=== PATIENT | male | born 1945 | race Caucasian/White ===

== ENCOUNTER 2021-09-02 15:51 | Inpatient (IN) | payer OTHER, SELFPAY ==
[~2021-09-02] VITALS: Ht 152.4 cm; Wt 81.6 kg
[2021-09-02 21:16] VITALS: BP 128/78
[2021-09-02] MEDS ORDERED: ACETAMINOPHEN 325 MG TAB PO PRN (23:55)
[2021-09-02] MEDS ORDERED: hydrALAZINE 20 MG/ML VIAL IVP PRN (23:55)
[2021-09-02] MEDS ORDERED: ONDANSETRON 4 MG/2 ML VIAL IVP PRN (23:55)
[2021-09-02] MEDS ORDERED: ALBUTEROL HFA MDI 90 MCG/ACTUATION 8 GM INH PRN (23:55)
[2021-09-03] VITALS: BP 138/78
[2021-09-03 03:50] VITALS: BP 136/72
[2021-09-03] MEDS: ASCORBIC ACID 500 MG TAB PO SCH ×5 (04:53→23:43)
[2021-09-03 07:07] LABS: HEMATOCRIT 39.1 % (36-52); HEMOGLOBIN 13.4 g/dL (12.0-18.0); MEAN CORPUSCULAR HEMOGLOBIN 29 pg (27-31); MEAN CORPUSCULAR HGB CONC 34 g/dL (33-37); MEAN CORPUSCULAR VOLUME 83.7 fL (80-94); PLATELET COUNT (AUTO) 106 K/uL (140-450); RED BLOOD CELL COUNT(AUTO) 4.67 MIL/uL (4.20-6.10); RED CELL DISTRIBUTION WIDTH 13.8 % (11.6-13.7); WHITE BLOOD COUNT (AUTO) 6.2 K/uL (4.8-10.8)
--- NOTE | 2021-09-03 07:20 | NUR ---
RECEIVED PATIENT REPORT FROM MANAGER HEART FAILURE NURSE FOR CONTINUITY OF CARE. PT IS AOX4, NO RESPIRATORY DISTRESS. SKIN IS INTACT. NO IV AT THE MOMENT. DENIES PAIN AT THE MOMENT. PLAN OF CARE DISCUSSED. SAFETY PRECAUTIONS IN PLACE CALL LIGHT WITHIN REACH. NC AT 5L .
[2021-09-03 07:48] LABS: ANION GAP 19.9 (8-16); CARBON DIOXIDE 18.7 mmol/L (21-32); CHLORIDE 107 mmol/L (98-107); CREATININE 1.4 mg/dL (0.6-1.3); GLUCOSE 208 mg/dL (74-106); POTASSIUM 4.6 mmol/L (3.5-5.1); SODIUM SERUM 141 mmol/L (136-145); UREA NITROGEN, BLOOD 41 mg/dL (7-18)
[2021-09-03 08:00] VITALS: BP 140/67
[2021-09-03 09:50] LABS: LYMPHOCYTES % (MANUAL) 14 % (20-46)
[2021-09-03 09:51] LABS: BASOPHILS % (MANUAL) 0 % (0-2); EOSINOPHILS % (MANUAL) 0 % (0-4); MONOCYTES % (MANUAL) 4 % (5-12)
[2021-09-03 10:12] LABS: ALBUMIN 2.5 g/dL (3.4-5.0); BILIRUBIN,DIRECT 0.3 mg/dL (0.0-0.3); TOTAL BILIRUBIN 0.6 mg/dL (0.0-1.0)
[2021-09-03] MEDS: DEXAMETHASONE 4 MG/ML VIAL IVP SCH (11:54)
[2021-09-03] MEDS: cefTRIAXone 2,000 MG in DEXTROSE 5% 100 ML IV SCH (11:55)
[2021-09-03 12:00] VITALS: BP 132/69
[2021-09-03] MEDS ORDERED: INSULIN LISPRO SLIDING SCALE 100 UNITS/ML VIAL SUBQ PRN (12:00)
[2021-09-03] MEDS ORDERED: remdesivir CLINICAL MONITORING 1 EA MISC MC PRN (12:40)
[2021-09-03] MEDS ORDERED: ENOXAPARIN 80 MG/0.8 ML SYR SUBQ SCH (12:45)
--- NOTE | 2021-09-03 13:49 | NUR ---
PATIENT HAS BEEN SCREENED AND CATEGORIZED MODERATE NUTRITION RISK. PATIENT WILL BE SEEN WITHIN 3-5 DAYS OF ADMISSION. 09/05/2021-09/07/[address]
[2021-09-03] MEDS: AZITHROMYCIN 500 MG in DEXTROSE 5% 250 ML IV SCH (13:58)
[2021-09-03] MEDS ORDERED: REMDESIVIR. 200 MG in NACL 0.9% 100 ML IV SCH (14:00)
[2021-09-03] MEDS: remdesivir COMMUNICATION ORDER 1 EA MISC MC SCH (14:00)
[2021-09-03 16:00] VITALS: BP 132/69
[2021-09-03] MEDS ORDERED: REMDESIVIR. 100 MG in NACL 0.9% 100 ML IV SCH ×4 (16:00)
--- NOTE | 2021-09-03 19:30 | NUR ---
ENDORSED PATIENT TO SUPERINTENDENT CEMETERY NURSE. PT STABLE. NO S/S OF DISTRESS. ON NC 3L . BREATHING IS UNLABORED AND SYMMETRICAL. CALL LIGHT IS WITHIN REACH. ALL SAFETY MEASURES IN PLACE.
[2021-09-03 20:00] VITALS: BP 134/70
[2021-09-03] MEDS: ZINC SULF 220 MG CAP PO SCH (21:58)
[2021-09-04] VITALS: BP 139/73
--- NOTE | 2021-09-04 01:08 | NUR ---
Assumed care. A/O. Very hard of hearing. He states it himself. He is also c/o not being able to see well. He has been advised to bring these complaints to the attention of the attending physician. He will be doing this. A thorough bed bath has been given. In the process he indicated to have had some body aches, and pains. Tylenol has been administered. A new IV 20gauge has been inserted in the left forearm to mitigate the frequent 2/2 to the bending of the left antecubital (site of the original IV line.)Fresh drinking water has been offered. He drank 480 ml during my presence. Will continue to monitor.
[2021-09-04 04:00] VITALS: BP 140/74
[2021-09-04] MEDS: ASCORBIC ACID 500 MG TAB PO SCH ×3 (05:53→18:14)
[2021-09-04 06:23] LABS: BASOPHILS % (AUTO) 0.2 % (0.0-2.0); HEMATOCRIT 37.4 % (36-52); HEMOGLOBIN 12.6 g/dL (12.0-18.0); LYMPHOCYTES # (AUTO) 0.8 K/uL (2.0-11.5); MEAN CORPUSCULAR HEMOGLOBIN 28 pg (27-31); MEAN CORPUSCULAR HGB CONC 34 g/dL (33-37); MEAN CORPUSCULAR VOLUME 83.7 fL (80-94); MONOCYTES # (AUTO) 0.9 K/uL (0.8-1.0); MONOCYTES % (AUTO) 8.2 % (1.7-9.3); NEUTROPHILS # (AUTO) 9.6 K/uL (1.8-7.7); PLATELET COUNT (AUTO) 130 K/uL (140-450); RED BLOOD CELL COUNT(AUTO) 4.47 MIL/uL (4.20-6.10); RED CELL DISTRIBUTION WIDTH 13.9 % (11.6-13.7); WHITE BLOOD COUNT (AUTO) 11.3 K/uL (4.8-10.8)
[2021-09-04 06:49] LABS: ANION GAP 15.9 (8-16); CARBON DIOXIDE 20.6 mmol/L (21-32); CHLORIDE 105 mmol/L (98-107); CREATININE 1.3 mg/dL (0.6-1.3); GLUCOSE 287 mg/dL (74-106); POTASSIUM 4.5 mmol/L (3.5-5.1); SODIUM SERUM 137 mmol/L (136-145); UREA NITROGEN, BLOOD 45 mg/dL (7-18)
[2021-09-04 07:15] LABS: LYMPHOCYTES % (AUTO) 6.8 % (20.5-51.1); NEUTROPHILS % (AUTO) 84.8 % (42.2-75.2)
--- NOTE | 2021-09-04 07:30 | NUR ---
BEDSIDE REPORT RECEIVED FROM FINISHING INSPECTOR RN . PT IN BED RESTING EYES CLOSED BREATHING IS SYMMETRICAL . PATIEN ON 3 L NC 91% , ALL SAFETY MEASURES IN PLACE.
[2021-09-04 08:00] VITALS: BP 127/72
--- NOTE | 2021-09-04 08:10 | NUR ---
PT RESTING IN BED EATING BREAKFAST , PT CONSUMED 25% at this point . ALL SAFETY MEASURES IN PLACE.
[2021-09-04] MEDS: remdesivir COMMUNICATION ORDER 1 EA MISC MC SCH (09:00)
[2021-09-04] MEDS: DEXAMETHASONE 4 MG/ML VIAL IVP SCH (09:07)
--- NOTE | 2021-09-04 09:15 | NUR ---
MEDICATIONS GIVEN PER MD ORDER. PT EDUCATED VERBALIZED UNDERSTANDING ALL SAFETY MEASURES ARE IN PLACE.
[2021-09-04 09:47] LABS: BILIRUBIN,DIRECT 0.2 mg/dL (0.0-0.3); TOTAL BILIRUBIN 0.5 mg/dL (0.0-1.0)
[2021-09-04 09:50] LABS: ALBUMIN 2.4 g/dL (3.4-5.0)
[2021-09-04] MEDS: cefTRIAXone 2,000 MG in DEXTROSE 5% 100 ML IV SCH (10:59)
--- NOTE | 2021-09-04 11:52 | NUR ---
PT COMPLAINS THAT HE CANNOT HEAR AND NEEDS HEARING AIDS, AWARE
--- NOTE | 2021-09-04 12:27 | NUR ---
MEDICATIONS GIVEN PER MD ORDER. PT EDUCATED VERBALIZED UNDERSTANDING ALL SAFETY MEASURES ARE IN PLACE.
--- NOTE | 2021-09-04 12:27 | NUR ---
MEDICATIONS GIVEN PER MD ORDER. PT EDUCATED VERBALIZED UNDERSTANDING ALL SAFETY MEASURES ARE IN PLACE.
[2021-09-04] MEDS ORDERED: REMDESIVIR. 100 MG in NACL 0.9% 100 ML IV SCH (14:00)
--- NOTE | 2021-09-04 14:25 | NUR ---
PT ASSISTED WITH BED BATH
[2021-09-04] MEDS: AZITHROMYCIN 500 MG in DEXTROSE 5% 250 ML IV SCH (14:36)
[2021-09-04 16:00] VITALS: BP 134/77
[2021-09-04] MEDS: REMDESIVIR. 100 MG in NACL 0.9% 100 ML IV SCH (16:00)
--- NOTE | 2021-09-04 16:00 | NUR ---
MEDICATIONS GIVEN PER MD ORDER. PT EDUCATED VERBALIZED UNDERSTANDING ALL SAFETY MEASURES ARE IN PLACE.
--- NOTE | 2021-09-04 17:25 | NUR ---
GRANDDAUGHTER CALLED, PT RESTING AT THIS TIME . PT WILL BE MADE AWARE THAT FAMILY IS TRYING TO REACH HIM WHEN AWAKE
--- NOTE | 2021-09-04 18:15 | NUR ---
PT RESTING IN BED , MEAL TRAY WAS SET UP . PT PHONE WAS CONNECTED TO ASSISTANT DIRECTOR OF FINANCIAL AID . PT REMINDED TO CALL FAMILY
--- NOTE | 2021-09-04 18:25 | NUR ---
MEDICATIONS GIVEN PER MD ORDER. PT EDUCATED VERBALIZED UNDERSTANDING ALL SAFETY MEASURES ARE IN PLACE.
--- NOTE | 2021-09-04 19:22 | NUR ---
BED SIDE REPORT GIVEN TO CLOTH WIRE WEAVER RN , PT INSTABLE CONDITION.
[2021-09-04 20:00] VITALS: BP 132/79
[2021-09-04] MEDS: ZINC SULF 220 MG CAP PO SCH (22:05)
[2021-09-05] VITALS: BP 140/78
[2021-09-05] MEDS: ASCORBIC ACID 500 MG TAB PO SCH ×4 (01:48→16:55)
[2021-09-05 04:00] VITALS: BP 142/71
[2021-09-05 07:02] LABS: ANION GAP 7.2 (8-16); CHLORIDE 105 mmol/L (98-107); CREATININE 1.1 mg/dL (0.6-1.3); GLUCOSE 288 mg/dL (74-106); POTASSIUM 4.2 mmol/L (3.5-5.1); SODIUM SERUM 130 mmol/L (136-145); UREA NITROGEN, BLOOD 40 mg/dL (7-18)
[2021-09-05 07:53] LABS: ALBUMIN 2.4 g/dL (3.4-5.0); BILIRUBIN,DIRECT 0.3 mg/dL (0.0-0.3); TOTAL BILIRUBIN 0.6 mg/dL (0.0-1.0)
--- NOTE | 2021-09-05 07:53 | NUR ---
RECEIVED PATIENT REPORT FROM SERVICE ORDER EXPEDITER NURSE FOR CONTINUITY OF CARE. PT IS AOX4, NO RESPIRATORY DISTRESS. SKIN IS INTACT. PATIENT HAS AN IV IN LEFT FOREAM . DENIES PAIN AT THE MOMENT. PLAN OF CARE DISCUSSED. SAFETY PRECAUTIONS IN PLACE CALL LIGHT WITHIN REACH. NC AT 5L SAT 93%
[2021-09-05 08:00] VITALS: BP_SYST 125; BP_SYST 150; BP_DIAS 68; BP_DIAS 70
[2021-09-05] MEDS: DEXAMETHASONE 4 MG/ML VIAL IVP SCH (08:45)
[2021-09-05 09:25] LABS: BASOPHILS % (AUTO) 0.2 % (0.0-2.0); HEMATOCRIT 37.1 % (36-52); HEMOGLOBIN 12.6 g/dL (12.0-18.0); LYMPHOCYTES # (AUTO) 0.8 K/uL (2.0-11.5); LYMPHOCYTES % (AUTO) 6.5 % (20.5-51.1); MEAN CORPUSCULAR HEMOGLOBIN 28 pg (27-31); MEAN CORPUSCULAR HGB CONC 34 g/dL (33-37); MEAN CORPUSCULAR VOLUME 83.2 fL (80-94); MONOCYTES # (AUTO) 1.1 K/uL (0.8-1.0); NEUTROPHILS # (AUTO) 10.4 K/uL (1.8-7.7); NEUTROPHILS % (AUTO) 84.3 % (42.2-75.2); PLATELET COUNT (AUTO) 144 K/uL (140-450); RED BLOOD CELL COUNT(AUTO) 4.46 MIL/uL (4.20-6.10); RED CELL DISTRIBUTION WIDTH 13.8 % (11.6-13.7); WHITE BLOOD COUNT (AUTO) 12.3 K/uL (4.8-10.8)
--- NOTE | 2021-09-05 09:45 | NUR ---
PATIENT LAYING ON BED NO COMPLAINS AT THIS TIME, NO SOD NOTED, BREATHING EVEN UNLABORED, MORNING MEDICATION GOT ADMINISTRATED TOLERATED WELL, ALL SAFETY MEASURES ON PLACE CALLS LIGHT WITHIN REACH
[2021-09-05] MEDS: cefTRIAXone 2,000 MG in DEXTROSE 5% 100 ML IV SCH (11:19)
[2021-09-05] MEDS: ENOXAPARIN 80 MG/0.8 ML SYR SUBQ SCH ×2 (11:23→21:27)
[2021-09-05 12:00] VITALS: BP 141/80
--- NOTE | 2021-09-05 12:47 | NUR ---
PATIENT IN BED GOT CLEANED AND CHANGED, NO SOD NOTED, ALL SAFETY MEASURES ON PLACE CALLS LIGHT WITHIN REACH
[2021-09-05] MEDS: AZITHROMYCIN 500 MG in DEXTROSE 5% 250 ML IV SCH (14:05)
--- NOTE | 2021-09-05 14:15 | NUR ---
PATIENT IN BED NO COMPLAINS NO SOD NOTED, FAMILY CALLED TO ASK ABOUT PATIENT ALL QUESTION WERE ANSWERED, PATIENT SA IN ROOM AIR 85, PUT NASAL CANULA BACK SAT LEVEL 96%, ALL SAFETY MEASURES ON PLACE CALLS LIGHT WITHIN REACH
--- NOTE | 2021-09-05 15:53 | NUR ---
PATIENT IN BED NO COMPLAINS, NO SOD NOTED, ALL SAFETY MEASURES ON PLACE CALLS LIGHT WITHIN REACH
--- NOTE | 2021-09-05 15:58 | NUR ---
DC PLANNIN YRS OLD MALE PATIENT WAS ADMITTED FROM HOME WITH A DX OF SOB AND COVID POSITIVE. PATIENT HAS A HX OF DM AND HTN. CXR SHOWED DIFFUSE PATCHY INFILTRATES CONSISTENT WITH COVID PNEUMONIA. ON 4L/NC SATING 93%. ADMINISTERED IVF, IV ABX AZITHROMYCIN AND REMDESIVIR DAY #3. PT EVAL DONE AND RECOMMENDED SNF PLACEMENT FOR PHYSICAL THERAPY. SPOKE WITH PATIENT AND AGREED TO GO TO SNF STATED HE HAS NO ONE TO HELP HIM. FAXED TO [facility] AND SNF THAT CAN TAKE COVID PATIENT [facility] AND JOSIE STEINER . CM TO FOLLOW. Addendum: 09/06/21 at 1221 by Kamala Fairchild RN DC PLANNING PATIENT ACCEPTED AT [facility] GOING TO [address] .RECEIVED AUTH FROM [facility] [id number] AND [facility] [id number]. ARRANGED TRANSPORT WITH [facility] [phone] GENERAL ACCOUNTING CLERK TIME 1700. CALLED PATIENT'S AMANDA [phone] LEFT A MESSAGE. NOTIFIED PAM MAR. GONZALO TO FOLLOW
[2021-09-05 16:00] VITALS: BP 130/84
[2021-09-05] MEDS: REMDESIVIR. 100 MG in NACL 0.9% 100 ML IV SCH (16:56)
[2021-09-05] MEDS ORDERED: LOVENOX 1MG/KG Q12H SUBQ SCH (17:00)
--- NOTE | 2021-09-05 18:21 | NUR ---
PATIENT IN BED NO COMPLAINS, NO SOD NOTED, ALL SAFETY MEASURES ON PLACE CALLS LIGHT WITHIN REACH
--- NOTE | 2021-09-05 19:49 | NUR ---
FULL REPORT GIVEN TO JUMPBASTING LINING BASTER NURSE
--- NOTE | 2021-09-05 19:50 | NUR ---
RECEIVED REPORT FROM AM NURSE. PATIENT IS RESTING WITH O2 NC AT 5L TOLERATING WELL. NO SOB NOTED. RESPIRATION EVEN UNLABORED. ALL SAFETY MEASURES ARE IN PLACE. NO COMPLAINTS OF PAIN. CALL LIGHT WITHIN REACH. WILL CONTINUE TO MONITOR.
[2021-09-05] MEDS: ZINC SULF 220 MG CAP PO SCH (21:25)
--- NOTE | 2021-09-05 21:27 | NUR ---
ALL SCHEDULED MEDS AT 2100 ARE GIVEN.
[2021-09-06] VITALS: BP 144/71
[2021-09-06] MEDS: ASCORBIC ACID 500 MG TAB PO SCH ×4 (00:13→18:26)
--- NOTE | 2021-09-06 02:00 | NUR ---
PATIENT IS ASLEEP. NO S/S OF RESPIRATORY DISTRESS. CALL LIGHT WITHIN REACH.
--- NOTE | 2021-09-06 07:30 | NUR ---
ENDORSED TO AM NURSE FOR CONTINUITY OF CARE. PATIENT IS STABLE.
--- NOTE | 2021-09-06 07:30 | NUR ---
RECEIVED REPORT FROM DOUGHMAKER NURSE FOR CONTINUITY OF CARE. PATIENT IS IN BED SLEEPING AT THIS TIME. RESPIRATIONS ARE EVEN AND UNLABORED. NO SIGNS OF DISTRESS NOTED. PATIENT IS ALERT AND ORIENTED X3. [place] SPEAKING ONLY. PATIENT IS HARD OF HEARING. PATIENT IS ON 5L02, HOWEVER DOES TAKE IT OFF AT TIMES, AND IS SAT AT 98%. PATIENT IS ON 2G SODIUM DIET, ABD IS SOFT, NON-TENDER, NON-DISTENDED WITH BOWEL SOUNDS PRESENT. PATIENT HAS IV TO LFA 20G. IV IS INTACT AND PATENT. PATIENT SKIN IS WARM, DRY, AND INTACT. PER DOUGHMAKER, PATIENT REFUSED LAST BLOOD GLUCOSE CHECK. WILL ATTEMPT BLOOD GLUCOSE CHECK. ALL SAFETY MEASURES IN PLACE. CALL LIGHT WITHIN REACH. WILL CONTINUE TO MONITOR.
--- NOTE | 2021-09-06 07:35 | NUR ---
patient refused blood glucose check.
[2021-09-06 08:00] VITALS: BP 146/70
[2021-09-06] MEDS: ENOXAPARIN 80 MG/0.8 ML SYR SUBQ SCH (09:34)
--- NOTE | 2021-09-06 09:34 | NUR ---
ALL SCHEDULED MEDICATIONS ADMINISTERED. EDUCATED PATIENT ON ALL MEDICATIONS ADMINISTERED. PATIENT STATED AN UNDERSTANDING OF INFORMATION PROVIDED. ATTEMPTED BLOOD GLUCOSE CHECK, PATIENT REFUSED. STATED HE IS TIRED OF GETTING POKED. EDUCATED PATIENT ON IMPORTANCE OF BLOOD GLUCOSE MONITORING. PATIENT STILL REFUSED. WILL ATTEMPTED AGAIN.
[2021-09-06] MEDS: DEXAMETHASONE 4 MG/ML VIAL IVP SCH (09:37)
[2021-09-06] MEDS: cefTRIAXone 2,000 MG in DEXTROSE 5% 100 ML IV SCH (10:26)
--- NOTE | 2021-09-06 10:26 | NUR ---
IV MEDICATION ROCEPHIN ADMINISTERED BY ZAID.
--- NOTE | 2021-09-06 10:27 | NUR ---
PT TITRATED FROM 6 TO 5L NC, SPO2 92%.
[2021-09-06] MEDS ORDERED: LOV80I SUBQ (11:20)
[2021-09-06] MEDS ORDERED: ROC2I IVP (11:20)
[2021-09-06] MEDS ORDERED: ZINC220C29 PO (11:20)
[2021-09-06] MEDS ORDERED: ACET-1182 PO (11:20)
[2021-09-06] MEDS ORDERED: AZIT500P1 IV (11:20)
[2021-09-06] MEDS ORDERED: VITC500 PO (11:20)
[2021-09-06] MEDS ORDERED: DEXA4VIA11 IVP (11:20)
--- NOTE | 2021-09-06 11:54 | NUR ---
09/06/21 RD INITIAL ASSESSMENT COMPLETED PLEASE REFER TO NUTRITION ASSESSMENT UNDER CARE ACTIVITY FOR ESTIMATED NUTRITIONAL NEEDS. 1. RECOMMEND MECHANICAL SOFT, CCHO, 2GM NA DUE TO HYPERGLYCEMIA AND MISSING TEETH 2. RECOMMEND GLUCERNA BID -THIS WILL PROVIDE [address] KCALS AND [address] TO FOLLOW-UP 3-5 DAYS, MODERATE RISK REVIEWED BY PAM LACEY RD
--- NOTE | 2021-09-06 12:58 | NUR ---
PATIENT BLOOD GLUCOSE 265. COVERED WITH 6 UNITS INSULIN PER SLIDING SCALE. WILL CONTINUE TO MONITOR.
[2021-09-06] MEDS: AZITHROMYCIN 500 MG in DEXTROSE 5% 250 ML IV SCH (14:27)
--- NOTE | 2021-09-06 14:30 | NUR ---
IV MEDICATION ZITHROMAX ADMINISTERED BY RN.
--- NOTE | 2021-09-06 15:45 | NUR ---
RECEIVED A CALL FROM [facility], TO INFORM ABOUT PATIENT TRANSPORTATION. PATIENT WILL BE TRANSPORTED VIA [facility] AT 1700. ARRANGED WITH [facility]. PATIENT WILL DISCHARGE VIA GURNEY WITH 5L 02, PROVIDED BY TRANSPORT [email or web address].
[2021-09-06 16:00] VITALS: BP 166/88
--- NOTE | 2021-09-06 16:10 | NUR ---
SPOKE WITH PATIENT'S GRAND DAUGHTER AND INFORMED HER AND REGARDING PATIENT TRANSPORT TO [facility]. WENT OVER DISCHARGE PAPERWORK AND MEDICATIONS. FAMILY STATED AN UNDERSTANDING OF INFORMATION PROVIDED.
[2021-09-06] MEDS: BLOOD GLUCOSE MONITORING 1 DEV DEV FS SCH (16:30)
--- NOTE | 2021-09-06 16:30 | NUR ---
PATIENT REFUSED BLOOD GLUCOSE CHECK. EDUCATED PATIENT ON IMPORTANCE OF BLOOD GLUCOSE CHECKS. PATIENT CONTINUED TO REFUSE. WILL ATTEMPT TO TRY AGAIN.
--- NOTE | 2021-09-06 16:45 | NUR ---
CALLED [facility] TO GIVE REPORT ON PATIENT DISCHARGING. SPOKE WITH MARY.
[2021-09-06] MEDS: REMDESIVIR. 100 MG in NACL 0.9% 100 ML IV SCH (17:01)
[2021-09-06 17:03] VITALS: BP 166/88
--- NOTE | 2021-09-06 18:37 | NUR ---
PATIENT ALLOWED STAFF TO DO BLOOD GLUCOSE CHECK. BLOOD GLUCOSE AT 233. COVERED WITH 4 UNITS INSULIN.
--- NOTE | 2021-09-06 19:07 | NUR ---
ENDORSED PATIENT TO BENDING ROLL OPERATOR NURSE FOR CONTINUITY OF CARE. PATIENT STABLE.
--- NOTE | 2021-09-06 19:08 | NUR ---
RECD. RESTING IN BED, AWAKE, A/OX3. RESPIRATION EVEN AND UNLABORED. ON 02 AT 5 LITERS VIA N/C, 02 SAT - 96%. IV OF NS INFUSING AT TKO, LEFT FOR[facility]ARM [facility] ADDITIONAL DISCHARGE INSTRUCTIONS GIVEN. VERBALIZED UNDERSTANDING. DENIES PAIN 0/10.
--- NOTE | 2021-09-06 19:45 | NUR ---
TAKEN TO HOSPITAL LOBBY PARKING VIA GURNEY IN STABLE CONDITION, ACCOMPANIED BY [facility] PERSONNEL FOR TRANSFER TO [facility]. CHARGE NURSE KATALINA AND [employer]ODUCTS ASSEMBLER LINDA ANDERSON.
--- NOTE | 2021-09-06 20:15 | NUR ---
[facility] PERSONNEL CAME, REPORT GIVEN. ALL PATIENT BELONGINGS PUT IN A PLASTIC BAG TO GO WITH PATIENT. Addendum: 09/06/21 at 2019 by Asiya Carrasquillo LVN CORRECTION: TIME OF ALS AMBULANCE PERSONNEL IS 1913 NOT 2014.
== END 2021-09-06 19:50 | DRG 177 ==
LOC: MTU 15:51 → EDSEX 15:51
PROVIDERS: ADMIT Hospitalist; ATTEND Hospitalist
PROC: XW033E5 Introduction of Remdesivir Anti-infective into Peripheral Vein, Percutaneous Approach, New Technology Group 5 (ICD-10-PCS; principal; 2021-09-03)
DX: U07.1 COVID-19 (principal); J12.82 Pneumonia due to coronavirus disease 2019; J96.01 Acute respiratory failure with hypoxia; E87.1 Hypo-osmolality and hyponatremia; N17.9 Acute kidney failure, unspecified; E11.65 Type 2 diabetes mellitus with hyperglycemia; E87.8 Other disorders of electrolyte and fluid balance, not elsewhere classified; I12.9 Hypertensive chronic kidney disease with stage 1 through stage 4 chronic kidney disease, or unspecified chronic kidney disease; E11.22 Type 2 diabetes mellitus with diabetic chronic kidney disease; N18.9 Chronic kidney disease, unspecified
CPT/HCPCS: 36415; 80048; 80076; 83036; 85025; 85379; 87081; 97112; 97116; 97163-GP; 97530; J0456; J0696; J1100; J1650; J7060